=== PATIENT | male | born 1965 | race Caucasian/White ===

== ENCOUNTER 2019-03-28 05:23 | Observation (INO) | payer OTHER ==
[~2019-03-28] VITALS: Ht 165.1 cm; Wt 103.1 kg
[~2019-03-28 05:23] MED LIST: ETODOLAC500 MG PO
[2019-03-28] MEDS ORDERED: VANCOMYCIN HCL 1,000 MG ONE (06:40)
[2019-03-28] MEDS ORDERED: BACITRACIN 50,000 UNIT VIAL ONE (06:40)
[2019-03-28] MEDS ORDERED: TRANEXAMIC ACID 1,000 MG/10 ML ML ONE (06:40)
[2019-03-28] MEDS ORDERED: SODIUM CHLORIDE 0.9% 500ML 500 ML ONE (06:44)
[2019-03-28] MEDS ORDERED: CELECOXIB 200 MG CAP ONE (06:44)
[2019-03-28] MEDS ORDERED: DEXAMETHASONE SOD PHOS 10 MG/1 ML VIAL ONE (06:44)
[2019-03-28] MEDS ORDERED: GABAPENTIN 300 MG CAP ONE (06:45)
[2019-03-28] MEDS ORDERED: CEFAZOLIN SOD 1 GM/NS 50ML 100 ML IV ONE (06:45)
[2019-03-28] MEDS ORDERED: ROPIVACAINE 246.25 MG, EPINEPHRINE HCL 1:1000 1ML 0.5 MG, CLONIDINE HCL 0.08 MG, KETORO... INJ ONE ×5 (07:30)
[2019-03-28] MEDS ORDERED: HYDROCODONE/APAP 5MG-325MG TAB PO PRN (09:30)
[2019-03-28] MEDS ORDERED: PROMETHAZINE HCL (IM) 25 MG/ML VIAL INJ PRN (09:30)
[2019-03-28] MEDS ORDERED: ONDANSETRON HCL INJ 2MG/ML 2ML 2 MG/ML VIAL IV PRN (09:30)
[2019-03-28] MEDS ORDERED: DOCUSATE SODIUM 100 MG CAP PO PRN (09:30)
[2019-03-28] MEDS ORDERED: ZOLPIDEM TARTRATE 5 MG TAB PO PRN (09:30)
[2019-03-28] MEDS ORDERED: KETOROLAC TROMETHAMINE 30 MG/ML VIAL IV PRN (09:30)
[2019-03-28] MEDS ORDERED: HYDROCODONE/APAP 7.5MG-325MG 1 EA TAB PO PRN (09:30)
[2019-03-28] MEDS ORDERED: DIPHENHYDRAMINE HCL INJ 50 MG/ML VIAL IM/IV PRN (09:30)
[2019-03-28] MEDS ORDERED: ACETAMINOPHEN 650 MG SUPP PR PRN (09:30)
[2019-03-28] MEDS ORDERED: FENTANYL CITRATE/PF 100MCG/2 ML INJ ONE ×2 (09:41→14:52)
--- NOTE | 2019-03-28 10:43 | Diagnostic Imaging Report ---
Left knee, 2 views. History: Postop. Findings: Status post total left knee arthroplasty with prosthetic components in anatomic alignment. Overlying subcutaneous emphysema and surgical skin coleman are present. IMPRESSION: Status post left knee replacement in anatomic position. Signed by: Steven De Jesus on 03/28/2019 10:40 AM
[2019-03-28] MEDS: ACETAMINOPHEN 1000 MG/100 ML IV SCH ×2 (12:00→17:23)
[2019-03-28] MEDS ORDERED: SODIUM CHLORIDE 0.9% 1000ML 1,000 ML ONE (12:31)
--- NOTE | 2019-03-28 12:52 | Operative Report ---
DATE OF PROCEDURE: 03/28/2019 SURGEON: Freddy Hudson MD EXPEDITION SUPERVISOR: Albin Abdul. PREOPERATIVE DIAGNOSIS: Osteoarthritis, left knee. POSTOPERATIVE DIAGNOSIS: Osteoarthritis, left knee. PROCEDURE: Left total knee arthroplasty. INDICATIONS: The patient is a 53-year-old gentleman, who complains of severe pain in his left knee. Clinic exam and x-rays are consistent with medial compartment osteoarthritis. The findings and options have been discussed. The patient is highly motivated to proceed with a left total knee replacement. The risks and benefits have been reviewed. Alternatives of care have been discussed. He states he understands and wishes to proceed. PROCEDURE IN DETAIL: The patient was brought to the operating room and placed under general anesthetic. His left lower extremity was prepped and draped in a sterile manner. He received prophylactic antibiotics, tranexamic acid, and a regional block in the holding area. A preoperative time-out was performed. The extremity was exsanguinated and a proximal tourniquet was inflated to 300 mmHg. An anterior incision with a medial parapatellar arthrotomy was performed. Clear synovial fluid was removed from the joint. Soft tissue releases were performed to bring the knee up into flexion with the patella everted. The anterior cruciate ligament was sacrificed. A [employer] Person[employer] knee system was used throughout the case. Marginal osteophytes and meniscal remnants were removed. An extramedullary cutting guide was used to resect the proximal tibia. The tibial base plate was noted to be a size D. The central fin punch was drilled and impacted. Attention was directed towards the distal femur. An intramedullary cutting guide was used to resect the distal femur in 5 degrees of valgus and rotation referencing off a combination of landmarks including Whitesides line, the epicondylar axis, and the posterior condyles. The femoral component was a size #7. The anterior and posterior cuts were made. Trial reductions were performed. A 10 mm medial congruent tibial insert provided appropriate soft tissue balancing in full extension and 90 degrees of flexion. The patella was resurfaced with a 32 mm x 8.5 mm patellar button. The thickness was checked before and after and was right around 22 mm. Patellar tracking was noted to be concentric. The trial implants were then all removed. A 100 mL premixed pericapsular CK injection was placed into the surrounding soft tissue. The knee was then thoroughly irrigated with a shower tip pulsatile lavage. All bone cuts using an oscillating saw had been irrigated using a spray mixture of diluted polymyxin and vancomycin spray. The components were cemented into place using a single mix of Palacos cement preloaded with antibiotics. Care was taken to remove extravasated cement. The wound was further irrigated with the pulsatile lavage while the cement cured. A 500 mg of vancomycin powder was then placed into the joint. The arthrotomy was closed with interrupted #1 Ethibond. The skin was closed with subcuticular Vicryl and coleman. A sterile Aquacel bandage and an Stephen wrap were applied. The patient was then transported to the recovery room in stable condition. Blood loss was minimal. All needle and sponge counts were correct. Freddy Hudson MD DR/JOSE /[id number]
--- NOTE | 2019-03-28 13:39 | NUR ---
RECEIVED PATIENT FROM RECOVERY. PATIENT A/O X3, EVEN RESPIRATIONS ON RA. BOWEL SOUNDS X4. LUNG SOUNDS CLEAR TO AUSCULTATION. LEFT HAND 20 GAUGE IV WITH NS @ 100 CC/HR. RIGHT SCOTT HOSE IN PLACE. FOOT PUMPS BILATERALLY. NO PAIN AT THIS TIME. LEFT KNEE DRESSING CLEAN, DRY, AND INTACT. VITAL SIGNS STABLE. CALL LIGHT IN REACH WILL CONTINUE TO MONITOR PATIENT.
[2019-03-28 13:45] VITALS: BP 131/62
[2019-03-28] MEDS: SODIUM CHLORIDE 0.9% 1000ML 1,000 ML IV SCH (14:00)
[2019-03-28 14:01] VITALS: BP 131/62
[2019-03-28] MEDS: CEFAZOLIN SOD 1 GM/NS 50ML 50 ML IV SCH ×2 (14:25→22:30)
[2019-03-28] MEDS ORDERED: PROPOFOL IV EMULSION 10 MG/ML 20 ML VIAL ONE (14:42)
[2019-03-28] MEDS ORDERED: LIDOCAINE HCL 2% LOCAL INJ 5 ML SDV VIAL INJ ONE (14:42)
[2019-03-28] MEDS ORDERED: KETOROLAC TROMETHAMINE 30 MG/ML VIAL ONE (14:42)
[2019-03-28] MEDS ORDERED: PHENYLEPHRINE HCL 1% 10 MG/ML VIAL ONE (14:42)
[2019-03-28] MEDS ORDERED: DEXAMETHASONE SOD PHOS INJ 4 MG/ML VIAL ONE (14:42)
[2019-03-28] MEDS ORDERED: ONDANSETRON HCL INJ 2MG/ML 2ML 2 MG/ML VIAL ONE (14:42)
[2019-03-28] MEDS ORDERED: SEVOFLURANE INHAL SOLN 250 ML PEN BTL ONE (14:42)
[2019-03-28] MEDS ORDERED: EPINEPHRINE HCL 1:1000 1ML 1 MG/ML AMP ONE (14:44)
[2019-03-28] MEDS ORDERED: BUPIVACAINE HCL 0.5% INJ 30 ML VIAL INJ ONE (14:44)
[2019-03-28] MEDS ORDERED: MIDAZOLAM HCL 2 MG/2 ML VIAL ONE (14:52)
[2019-03-28 15:52] VITALS: BP 115/59
[2019-03-28] MEDS: ASPIRIN 325 MG TAB PO SCH (17:23)
[2019-03-28] MEDS: CELECOXIB 200 MG CAP PO SCH (17:23)
--- NOTE | 2019-03-28 19:50 | NUR ---
PLACED ON CPM AT THIS TIME
[2019-03-28 20:00] VITALS: BP 97/52
[2019-03-28 23:26] VITALS: BP 109/58
[2019-03-29] MEDS: ACETAMINOPHEN 1000 MG/100 ML IV SCH ×2 (00:30→06:03)
[2019-03-29 04:00] VITALS: BP 122/70
--- NOTE | 2019-03-29 06:00 | NUR ---
PLACED ON CPM 60 AT THIS TIME
[2019-03-29 06:07] LABS: HEMOGLOBIN 13.5 g/dL (14.0-18.0)
[2019-03-29] MEDS: CEFAZOLIN SOD 1 GM/NS 50ML 50 ML IV SCH (06:18)
--- NOTE | 2019-03-29 07:12 | NUR ---
RECEIVED PATIENT AWAKE RESTING IN BED. CPM IN PLACE, NO SIGNS OF DISTRESS. BED LOW, WHEELS LOCKED, SIDE RAILS X2, CALL LIGHT IN REACH WILL CONTINUE TO MONITOR PATIENT.
[2019-03-29 07:26] VITALS: BP 127/63
--- NOTE | 2019-03-29 07:42 | Consultation ---
DATE OF CONSULTATION: REASON FOR CONSULTATION: Postop medical management. HISTORY OF PRESENT ILLNESS: The patient is a 53-year-old gentleman, status post left total knee arthroplasty for end-stage osteoarthritis, who is doing very well postoperatively with minimal pain in the left knee and denies any chest pain, fever, chills, headaches, shortness of breath, dizziness, nausea, vomiting, or fever chills on review of systems. PAST MEDICAL HISTORY: Significant for osteoarthritis. PAST SURGICAL HISTORY: Knee scope. MEDICATIONS: Anti-inflammatory. ALLERGIES: NONE. SOCIAL HISTORY: Non-. 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 He does smoke about one pack per day for 37 years. Nondrinker. FAMILY HISTORY: Noncontributory. PHYSICAL EXAMINATION: VITAL SIGNS: Temperature is 96, pulse 76, blood pressure 136/70, and sats 98% on room air. GENERAL: He is no apparent distress, lying in bed. NECK: Supple. CARDIOVASCULAR: Regular rate rhythm. LUNGS: Clear to auscultation bilaterally. ABDOMEN: Good bowel sounds. Soft and nontender. EXTREMITIES: No clubbing or cyanosis. Left knee is bandaged with no seepage. NEUROLOGIC: Nonfocal. ASSESSMENT AND PLAN: 1. Status post left knee arthroplasty. Continue with postoperative care. Left knee pain, continue the current pain medicines. 2. Anemia, check a CBC. 3. Tobacco abuse. The patient was instructed to discontinue smoking. Please see hospital chart for full details. MD ACOSTA Little/JOSE /[id number]
--- NOTE | 2019-03-29 08:00 | NUR ---
REMOVED PATIENT FROM CPM, PATIENT TOLERATED WELL NO SIGNS OF DISTRESS.
[2019-03-29] MEDS: ASPIRIN 325 MG TAB PO SCH (08:06)
[2019-03-29] MEDS: CELECOXIB 200 MG CAP PO SCH (08:06)
--- NOTE | 2019-03-29 09:00 | NUR ---
PATIENT A/O X3, EVEN RESPIRATIONS ON RA. LUNG SOUNDS CLEAR TO AUSCULTATION. BOWEL SOUNDS X4. LEFT KNEE DRESSING CLEAN, DRY, AND INTACT. SCOTT HOSE AND FOOT PUMPS BILATERALLY. LEFT HAND 20 GAUGE IV SL. PAIN 5/10 LEFT KNEE. PRN PAIN MEDICATION. VITAL SIGNS STABLE, CALL LIGHT IN REACH WILL CONTINUE TO MONITOR PATIENT.
--- NOTE | 2019-03-29 09:15 | NUR ---
DR TRIPLETT OFFICE PREARRANGED FOLLOWING DISCHARGE PLAN OF: HOME HEALTH WITH HOME CARE PROVIDERS CONFIRMED WITH [facility] [phone] FOR SERVICES 5 TIMES A WEEK FOR 2 WEEKS AND FOR FOLLOWING 2 WEEKS 3 WEEKS DME 3 IN ONE COMMODE. AND ROLLING WALKER WITH WHEELS. PROVIDED BY [facility] [employer],[phone] DELIVERED HERE TO HOSPITAL AT 9AM.
[2019-03-29 09:26] VITALS: BP 127/63
[2019-03-29] MEDS ORDERED: ACETAMINOPHEN 1000 MG/100 ML IV PRN (09:30)
[2019-03-29] MEDS: SODIUM CHLORIDE 0.9% 1000ML 1,000 ML IV SCH ×2 (10:00)
[2019-03-29 11:42] VITALS: BP 112/64
--- NOTE | 2019-03-29 12:40 | NUR ---
REMOVED PATIENTS IV. CATHETER TIP INTACT AND PRESSURE DRESSING APPLIED.
--- NOTE | 2019-03-29 13:35 | NUR ---
PATIENT DISCHARGED FROM FACILITY. PATIENT GATHERED ALL PERSONAL BELONGINGS, DISCHARGE INSTRUCTIONS, AND FOLLOW UP INFORMATION. LEFT UNIT IN WHEEL CHAIR AND WENT HOME VIA PRIVATE AUTO. NO SIGNS OF DISTRESS WHEN LEAVING FACILITY.
== END 2019-03-29 13:35 | disposition home or self-care (01) ==
LOC: OR 05:23 → PACU V 09:21 → MED/SURG 13:39
PROVIDERS: ADMIT Specialist; ATTEND Specialist
DX: M17.12 Unilateral primary osteoarthritis, left knee (principal); F17.200 Nicotine dependence, unspecified, uncomplicated; D64.9 Anemia, unspecified; E78.5 Hyperlipidemia, unspecified
CPT/HCPCS: 27447; 36415; 73560; 85014; 85018; 86850; 86900; 86920; 93005; 97116; 97161; 97530 ×2; C1713; G0378 ×2; J0131 ×2; J0171; J0690 ×2; J1100 ×2; J1885; J2001; J2250; J2370; J2405; J2704; J2795; J3010; J3370; J7030; J7040; C1776

== ENCOUNTER 2019-05-03 10:00 | Outpatient (RCR) | payer OTHER | END 2019-05-09 | LOC: PT 10:00 | PROVIDERS: ATTEND Specialist | DX: Z96.652 Presence of left artificial knee joint (principal); Z47.1 Aftercare following joint replacement surgery; M62.81 Muscle weakness (generalized); M25.562 Pain in left knee; M25.662 Stiffness of left knee, not elsewhere classified ==

== ENCOUNTER 2019-05-17 10:53 | Outpatient (RCR) | payer OTHER | END 2019-06-09 | LOC: PT 10:53 | PROVIDERS: ATTEND Specialist | DX: Z96.652 Presence of left artificial knee joint (principal); Z47.1 Aftercare following joint replacement surgery; M25.552 Pain in left hip; M25.652 Stiffness of left hip, not elsewhere classified; M62.81 Muscle weakness (generalized) ==